=== PATIENT | male | born 1955 | race Caucasian/White ===

== ENCOUNTER 2018-09-07 10:31 | Day surgery (SDC) | payer OTHER ==
[2018-09-03 13:28] VITALS: BMI 28.5
[2018-09-07] MEDS ORDERED: PROPOFOL 20 ML ONE (10:51)
[2018-09-07 13:02] VITALS: TEMP 97.7
[2018-09-07 13:36] VITALS: BP 142/88; PULSE 86
== END 2018-09-07 14:00 | disposition home or self-care (01) ==
LOC: FASU-ENDO 10:31
PROVIDERS: ATTEND Internal Medicine Gastroenterology
PROC: 0DJD8ZZ Inspection of Lower Intestinal Tract, Via Natural or Artificial Opening Endoscopic (ICD-10-PCS; principal; 2018-09-07 12:29)
DX: Z86.010 Personal history of colon polyps (principal); Z80.0 Family history of malignant neoplasm of digestive organs

== ENCOUNTER 2020-10-09 16:45 | Emergency (ER) | payer OTHER | END 2020-10-09 16:57 | disposition home or self-care (01) | LOC: JVIRT 16:45 | DX: Z11.52 Encounter for screening for COVID-19 (principal) | CPT/HCPCS: C9803; G2012-GT; U0003 ==

== ENCOUNTER 2021-06-15 15:28 | Emergency (ER) | payer OTHER, MEDICARE ==
[2021-06-15 15:37] VITALS: BP 149/96; PULSE 104; TEMP 96.7; BMI 27.2
[2021-06-15] MEDS ORDERED: FAMOTIDINE 20 MG/50 ML IVPB 20 MG/50 ML MG IVPB ONE ×2 (16:26→16:51)
[2021-06-15] MEDS ORDERED: MAG HYDROX/AL HYDROX/SIMETH -MYLANTA- ORAL SUSPENSION PO ONE (16:26)
[2021-06-15] MEDS ORDERED: MAG HYDROX/AL HYDROX/SIMETH 30 ML UNIT-DOSE CUP ONE (16:51)
[2021-06-15 16:54] LABS: BASO % 4.4 % (0-2.0); EOS % 2.2 % (0-4.5); HEMATOCRIT 43.3 % (35.4-49); HEMOGLOBIN 15.5 GM/dl (11.7-16.9); LYMPH % 21.2 % (8-40); MCH 31.8 pg (25.7-33.7); MCHC 35.8 g/dl (32.0-35.9); MEAN CELL VOLUME 88.8 fl (80-96); MEAN PLT VOLUME 8.8 fl (7.5-11.1); MONO % 8.6 % (3.8-10.2); NEUT % 63.6 % (42.8-82.8); PLATELET COUNT 167 10^3/uL (134-434); RBC 4.88 M/mm3 (4.00-5.60); RDW 12.3 % (11.9-15.9); WHITE BLOOD COUNT 4.9 K/mm3 (4.0-10.8)
[2021-06-15 17:10] LABS: ALBUMIN 4.6 g/dl (3.4-5.0); CALCIUM 9.6 mg/dl (8.5-10); MAGNESIUM 2.1 mg/dL (1.8-2.4); TOT PROT 8.1 g/dl (6.4-8.2)
[2021-06-15] MEDS ORDERED: ACETAMINOPHEN 325 MG TABLET (FP) PO ONE (18:06)
[2021-06-15] MEDS ORDERED: ACETAMINOPHEN 325 MG TABLET (FP) ONE (18:06)
[2021-06-15] MEDS ORDERED: SODIUM CHLORIDE 0.9% 1000 ML INFUS.BAG IV ONE (19:02)
== END 2021-06-15 20:36 | disposition home or self-care (01) ==
LOC: FER 15:28
PROC: 3E033GC Introduction of Other Therapeutic Substance into Peripheral Vein, Percutaneous Approach (ICD-10-PCS; principal; 2021-06-15)
DX: R10.9 Unspecified abdominal pain (principal)
CPT/HCPCS: 36415; 74177-TC; 76705-TC; 80053; 81003; 81015; 83690; 83735; 85025; 87086; 99285-25; Q9967